=== PATIENT | male | born 1950 | race Caucasian/White ===

== ENCOUNTER → 2017-11-06 | Outpatient (CLI) | payer MEDICARE, OTHER ==
--- NOTE | 2017-11-07 17:42 | XCELERA REPORT ---
[address] [address] Transthoracic Echocardiogram Report Name: JOSE GUADALUPE DON Age: 67 yrs Gender: Male : 1950 Patient Status: Outpatient Patient Location: Study Date: 11/06/2017 09:06 AM Height: 68 in Weight: 227 lb BSA: 2.2 m2 Procedure: A two-dimensional transthoracic echocardiogram with color flow and Doppler was performed. Study Quality: Fair. Reason For Study: DYSPNEA History: DYSPNEA. Ordering Physician: VAL PATEL Performed By: Matthew Abebe Interpretation Summary DYSPNEA The left ventricle is normal in size. There is normal left ventricular wall thickness. LV EF is 55% to 60% Left ventricular systolic function is normal. Doppler measurements suggest impaired left ventricular relaxation, which is associated with grade I/IV or mild diastolic dysfunction The left ventricular wall motion is normal. There is no thrombus. There is no ventricular septal defect visualized. The right ventricle is grossly normal size. The right ventricle is not well visualized secondary to technical limitations The left atrium is mildly dilated. The interatrial septum is intact with no evidence for an atrial septal defect. There is no evidence of mitral valve prolapse. There is no mitral valve stenosis. There is a trace amount of mitral regurgitation There is no aortic valve stenosis There is no LVOT obstruction. No aortic regurgitation is present. There is no tricuspid stenosis. There is a trace amount of tricuspid regurgitation Unable to calculate RVSP due to insufficient TR jet. There is no pulmonic valvular stenosis. There is no pulmonic valvular regurgitation. There is no pericardial effusion. MMode/2D Measurements & Calculations RVDd: 3.9 cm LVIDd: 5.4 cm FS: 29.0 % Ao root diam: 3.0 cm IVSd: 1.1 cm LVIDs: 3.8 cm EDV(Teich): 139.9 ml LVPWd: 1.1 cm ESV(Teich): 62.7 ml Ao root area: 7.2 cm2 EF(Teich): 55.2 % LA dimension: 4.2 cm Doppler Measurements & Calculations MV E max gayatri: MV P1/2t max gayatri: Ao V2 max: LV V1 max P.0 cm/sec 80.1 cm/sec 105.6 cm/sec 5.0 mmHg MV A max gayatri: MV P1/2t: 87.2 msec Ao max PG: LV V1 max: 87.4 cm/sec 4.5 mmHg 112.0 cm/sec MV E/A: 0.86 MVA(P1/2t): 2.5 cm2 MV dec slope: 269.2 cm/sec2 MV dec time: 0.22 sec PA V2 max: 80.5 cm/sec PA max P.6 mmHg Left Ventricle The left ventricle is normal in size. There is normal left ventricular wall thickness. LV EF is 55% to 60%. Left ventricular systolic function is normal. Doppler measurements suggest impaired left ventricular relaxation, which is associated with grade I/IV or mild diastolic dysfunction. The left ventricular wall motion is normal. There is no thrombus. There is no ventricular septal defect visualized. Right Ventricle The right ventricle is grossly normal size. The right ventricle is not well visualized secondary to technical limitations. Atria The right atrium is normal. The left atrium is mildly dilated. The interatrial septum is intact with no evidence for an atrial septal defect. Mitral Valve There is no evidence of mitral valve prolapse. There is no vegetation seen on the mitral valve. There is no mitral valve stenosis. There is a trace amount of mitral regurgitation. Aortic Valve There is no aortic valvular vegetation. There is no aortic valve stenosis. There is no LVOT obstruction. No aortic regurgitation is present. Tricuspid Valve There is no tricuspid stenosis. There is a trace amount of tricuspid regurgitation. Unable to calculate RVSP due to insufficient TR jet. Pulmonic Valve There is no pulmonic valvular stenosis. There is no pulmonic valvular regurgitation. Great Vessels The aortic root is normal size. Effusions There is no pericardial effusion. : VAL PATEL > Betsy Howe
== END ==
LOC: SP 08:48
PROVIDERS: ATTEND Family Medicine
DX: R06.09 Other forms of dyspnea (principal); R42 Dizziness and giddiness
CPT/HCPCS: 93306

== ENCOUNTER 2017-11-11 08:52 | Emergency (ER) | payer MEDICARE, OTHER ==
[2017-11-11] MEDS ORDERED: ASPIRIN 81 MG TABLET, CHEWABLE PO ONE (09:27)
[2017-11-11 09:33] LABS: ABSOLUTE BASOPHILS # (AUTO) 0.1 10^3/uL (0.0-0.2); ABSOLUTE EOSINOPHILS # (AUTO) 0.3 10^3/uL (0.0-0.6); ABSOLUTE LYMPHOCYTES (AUTO) 2.1 10^3/uL (0.5-4.7); ABSOLUTE MONOCYTES (AUTO) 0.6 10^3/uL (0.1-1.4); ABSOLUTE NEUT (AUTO) 6.9 10^3/uL (1.7-8.2); EOSINOPHILS % (AUTO) 2.9 % (0-6); HEMATOCRIT 39.4 % (37.9-51.0); HEMOGLOBIN 13.1 g/dL (13.5-17.0); LYMPHOCYTES % (AUTO) 20.7 % (13-45); MEAN CORPUSCULAR HGB CONC 33.2 g/dL (32.0-36.0); MEAN CORPUSCULAR VOLUME 72 fl (80-97); MONOCYTES % (AUTO) 6.1 % (3-13); PLATELET COUNT 232 10^3/uL (150-450); RED BLOOD COUNT 5.44 10^6/uL (4.35-5.55); RED CELL DISTRIBUTION WIDTH 15.1 % (11.5-14.0); SEGMENTED NEUTROPHILS % (AUTO) 69.3 % (42-78); TOTAL CELLS COUNTED % (AUTO) 100 %
[2017-11-11 09:46] LABS: ALANINE AMINOTRANSFERASE 27 U/L (21-72); ALBUMIN 4.2 g/dL (3.5-5.0); ALKALINE PHOSPHATASE 81 U/L (38-126); ANION GAP 9 (5-19); ASPARTATE AMINO TRANSFERASE 25 U/L (17-59); BILIRUBIN,DIRECT 0.3 mg/dL (0.0-0.4); BILIRUBIN,TOTAL 0.6 mg/dL (0.2-1.3); BLOOD UREA NITROGEN 16 mg/dL (7-20); CARBON DIOXIDE 29 mmol/L (22-30); CHLORIDE 105 mmol/L (98-107); CREATINE KINASE 100 U/L (55-170); GLUCOSE 108 mg/dL (75-110); POTASSIUM 3.5 mmol/L (3.6-5.0); SODIUM 142.9 mmol/L (137-145); TOTAL PROTEIN 7.3 g/dL (6.3-8.2)
[2017-11-11 09:58] LABS: CREATINE KINASE MB 1.19 ng/mL (<4.55)
[2017-11-11 10:00] LABS: TROPONIN I < 0.012 ng/mL
--- NOTE | 2017-11-11 11:34 | RADIOLOGY REPORT (SQ) ---
EXAM DESCRIPTION: CHEST SINGLE VIEW COMPLETED DATE/TIME: 11/11/2017 11:06 am REASON FOR STUDY: cp COMPARISON: Chest films 04/13/2013, 06/12/2012, 09/30/2006 CT chest 09/30/2006 EXAM PARAMETERS: NUMBER OF VIEWS: One view. TECHNIQUE: Single frontal radiographic view of the chest acquired. RADIATION DOSE: NA LIMITATIONS: None. FINDINGS: LUNGS AND PLEURA: No opacities, masses or pneumothorax. No pleural effusion. MEDIASTINUM AND HILAR STRUCTURES: No masses. Contour normal. HEART AND VASCULAR STRUCTURES: Stable mild cardiomegaly BONES: No acute findings. HARDWARE: None in the chest. OTHER: No other significant finding. IMPRESSION: Stable mild cardiomegaly TECHNICAL DOCUMENTATION: JOB ID: [id number]- All Rights Reserved Reading location - IP/workstation name: [email or web address]
--- NOTE | 2017-11-11 12:07 | ER Document Report ---
ED General - General Chief Complaint: Chest Pain Stated Complaint: CHEST PAIN Time Seen by Provider: 11/11/17 09:27 TRAVEL OUTSIDE OF THE [place] IN LAST 30 DAYS: No - HPI Patient complains to provider of: Chest fluttering dizziness Notes: Patient states earlier this morning patient had episode of chest fluttering dizziness with some nausea and vomiting. Patient states multiple episodes over the last few weeks to months currently is being evaluated by his primary care physician. Patient has a history he states hypertension hyperlipidemia patient recently had a stress test performed and a cardiac catheterization in the last 3 months. States no stents were placed. Patient states his symptoms lasted for approximately 1 hour prior to arrival here in the ER. Patient currently is asymptomatic. Patient also states has a history of sleep apnea and does not wear his CPAP at night. Otherwise patient denies any fevers chills diarrhea recent travel recent antibiotics - Related Data Allergies/Adverse Reactions: hydrocodone bitartrate [From Vicodin] Adverse Reaction (Verified 04/13/13 05:09) Past Medical History - Social History Smoking Status: Current Every Day Smoker Chew tobacco use (# tins/day): No Frequency of alcohol use: Occasional Drug Abuse: None Family History: DM Patient has suicidal ideation: No Patient has homicidal ideation: No - Past Medical History Cardiac Medical History: Reports: Hx Hypercholesterolemia, Hx Hypertension Pulmonary Medical History: Reports: Hx Bronchitis - HAD SIX YEARS AGO, Hx COPD, Hx Pneumonia Denies: Hx Tuberculosis Renal/ Medical History: Denies: Hx Peritoneal Dialysis Musculoskeltal Medical History: Reports Hx Arthritis, Reports Hx Musculoskeletal Trauma Psychiatric Medical History: Reports: Hx Anxiety - ABOUT FIVE YEARS AGO, Hx Depression - ABOUT FIVE YEARS AGO, Hx Post Traumatic Stress Disorder - ABOUT FIVE YEARS AGO Past Surgical History: Reports: Hx Abdominal Surgery - APPENDIX, Hx Appendectomy , Hx Oral Surgery - ROOT CANAL.WISDOM TEETH, Hx Orthopedic Surgery - right knee. Denies: Hx Adenoidectomy - Immunizations Hx Diphtheria, Pertussis, Tetanus Vaccination: No Hx Pneumococcal Vaccination: 01/24/13 Review of Systems - Review of Systems Constitutional: No symptoms reported EENT: No symptoms reported Cardiovascular: Chest pain Respiratory: No symptoms reported Gastrointestinal: Nausea, Vomiting Genitourinary: No symptoms reported Male Genitourinary: No symptoms reported Musculoskeletal: No symptoms reported Skin: No symptoms reported Hematologic/Lymphatic: No symptoms reported Neurological/Psychological: No symptoms reported Physical Exam - Vital signs Vitals: Temp Resp BP Pulse Ox 98.3 F 11 L 162/84 H 90 L 11/11/17 08:56 11/11/17 08:56 11/11/17 08:56 11/11/17 08:56 Interpretation: Normal - General General appearance: Appears well, Alert - HEENT Head: Normocephalic, Atraumatic Eyes: Normal Pupils: PERRL - Respiratory Respiratory status: No respiratory distress Chest status: Nontender Breath sounds: Normal Chest palpation: Normal - Cardiovascular Rhythm: Regular Heart sounds: Normal auscultation Murmur: No - Abdominal Inspection: Normal Distension: No distension Bowel sounds: Normal Tenderness: Nontender Organomegaly: No organomegaly - Back Back: Normal, Nontender - Extremities General upper extremity: Normal inspection, Nontender, Normal color, Normal ROM , Normal temperature General lower extremity: Normal inspection, Nontender, Normal color, Normal ROM , Normal temperature, Normal weight bearing. No: Jason's sign - Neurological Neuro grossly intact: Yes Cognition: Normal Orientation: AAOx4 Timi Coma Scale Eye Opening: Spontaneous Timi Coma Scale Verbal: Oriented Semmes Coma Scale Motor: Obeys Commands Semmes Coma Scale Total: 15 Speech: Normal Motor strength normal: LUE, RUE, LLE, RLE Sensory: Normal - Psychological Associated symptoms: Normal affect, Normal mood - Skin Skin Temperature: Warm Skin Moisture: Dry Skin Color: Normal Course - Re-evaluation Re-evalutation: 11/11/17 16:17 The patient has atypical chest pain as the patient's chest pain is not suggestive of pulmonary embolus, cardiac ischemia, aortic dissection, or other serious etiology. Given the extremely low risk of these diagnoses further testing and evaluation for these possibilities does not appear to be indicated at this time. The patient has been instructed to return if the symptoms worsen or change in any way. Etiology symptoms possibly due to lack of the patient's use of his CPAP machine. Encouraged him to continue CPAP at home follow-up primary care physician. Laboratory studies not show any acute pathology - Vital Signs Vital signs: Temp Pulse Resp BP Pulse Ox 98.3 F 11 L 162/88 H 95 11/11/17 08:56 11/11/17 12:34 11/11/17 12:33 11/11/17 12:34 - Laboratory Result Diagrams: 11/11/17 09:03 11/11/17 09:03 Laboratory results interpreted by me: 11/11/17 11/11/17 09:03 09:03 Hgb 13.1 L MCV 72 L MCH 24.0 L RDW 15.1 H Potassium 3.5 L Discharge - Discharge Clinical Impression: Periodic heart flutter, Dizziness Disposition: HOME, SELF-CARE Instructions: Chest Wall Pain ([facility]), Chest Pain of Unclear Cause ([facility]), Dizziness ([facility]), Weakness ([facility]) Additional Instructions: Your evaluation does not show any signs of cardiac ischemia no signs infection requiring antibiotics. Will recommend to continue to eat a healthy diet make sure you are drinking plenty of water or fluids containing electrolytes. I would recommend that she continue to wear your CPAP machine R restart using her CPAP machine this might aid in some the symptoms that you have been experiencing. Return to the ER for any other concerns follow-up with your primary care physician.
[2017-11-11 12:36] VITALS: BP 162/88
--- NOTE | 2017-11-11 19:07 | EKG REPORT ---
SEVERITY:- NORMAL ECG - SINUS RHYTHM : Confirmed by: Betsy Howe MD 11-Nov-2017 19:07:02
== END 2017-11-11 12:37 | disposition home or self-care (01) ==
LOC: ER 08:52
DX: I49.8 Other specified cardiac arrhythmias (principal); R42 Dizziness and giddiness; R07.9 Chest pain, unspecified; R11.2 Nausea with vomiting, unspecified; F17.200 Nicotine dependence, unspecified, uncomplicated; I10 Essential (primary) hypertension; J44.9 Chronic obstructive pulmonary disease, unspecified
CPT/HCPCS: 93005; 99285; 36415; 82553; 82550; 85025; 80053; 84484; 71045; 93010; A9270

== ENCOUNTER → 2020-03-12 | Outpatient (CLI) | payer OTHER ==
--- NOTE | 2020-03-12 09:39 | RADIOLOGY REPORT (SQ) ---
EXAM DESCRIPTION: U/S ABD AORTIC SCREENING IMAGES COMPLETED DATE/TIME: 03/12/2020 9:27 am REASON FOR STUDY: SCREENING COMPARISON: None. TECHNIQUE: Static and dynamic grayscale images acquired of the aorta and stored on PACs. Selected co hyun Doppler and spectral images recorded. LIMITATIONS: None. FINDINGS: AORTIC CALIBER MAXIMAL PROXIMAL: 2.9 x 2.8 cm. MID: 2.5 x 2.3 cm. DISTAL: 1.9 x 2.1 cm. ILIAC DIAMETER RIGHT: 1.2 x 1.0 cm. LEFT: 1.3 x 1.2 cm. OTHER: Diffuse calcified plaque throughout. IMPRESSION: NO ABDOMINAL AORTIC ANEURYSM. COMMENT: Aortic aneurysm imaging followup: 2.6-2.9 cm Recommended followup every 5 years *Based upon the ACR White Paper in the J Am Isac Radiol 2013;10 (10):789-794. *For aortas of maximum diameter of 2.6-2.9 cm meeting the criteria for AAA (?1.5 x proximal normal se gment) TECHNICAL DOCUMENTATION: JOB ID: [id number] [employer]- All Rights Reserved Reading location - IP/workstation name: [email or web address]
== END ==
LOC: RAD 09:05
PROVIDERS: ATTEND Family Medicine
DX: Z13.6 Encounter for screening for cardiovascular disorders (principal); F17.210 Nicotine dependence, cigarettes, uncomplicated
CPT/HCPCS: 76706